=== PATIENT | male | born 1975 | race Two or more races ===

== ENCOUNTER 2022-10-08 07:50 | Emergency (ER) | payer OTHER ==
[~2022-10-08] VITALS: Ht 180.3 cm; Wt 88.9 kg
== END 2022-10-08 11:07 | disposition home or self-care (01) ==
LOC: ER 07:50
DX: S01.111A Laceration without foreign body of right eyelid and periocular area, initial encounter (principal); V19.9XXA Pedal cyclist (driver) (passenger) injured in unspecified traffic accident, initial encounter; Y93.B9 Activity, other involving muscle strengthening exercises; Y92.410 Unspecified street and highway as the place of occurrence of the external cause

== ENCOUNTER → 2022-10-16 | Emergency (ER) | payer OTHER ==
[~2022-10-16] VITALS: Ht 180.3 cm; Wt 90.7 kg
== END | disposition home or self-care (01) ==
LOC: ER 10:21
DX: Z48.02 Encounter for removal of sutures (principal)

== ENCOUNTER 2022-10-19 10:43 | Outpatient (CLI) | payer OTHER | END 2022-10-19 10:55 | disposition home or self-care (01) | LOC: TOM 10:43 | PROVIDERS: ATTEND General Practice | DX: R51.9 Headache, unspecified (principal); S09.90XA Unspecified injury of head, initial encounter ==

== ENCOUNTER 2025-05-21 12:38 | Emergency (ER) | payer OTHER ==
[~2025-05-21] VITALS: Ht 180.3 cm; Wt 95.3 kg
[2025-05-21] MEDS ORDERED: FAMOTIDINE/PF 20 MG/2 ML VIAL IV ONE (15:30)
[2025-05-21] MEDS ORDERED: 0.9 % SODIUM CHLORIDE 500 ML IV ONE (15:30)
[2025-05-21] MEDS ORDERED: KETOROLAC TROMETHAMINE 30 MG VIAL IV ONE ×2 (15:30→22:00)
[2025-05-21] MEDS ORDERED: ONDANSETRON HCL 2 MG/ML VIAL IV ONE (15:30)
[2025-05-21 16:19] LABS: BASO % 0.2 % (0.1-1.2); EOS # 0.00 (0.04-0.54); EOS % 0.0 % (0.7-7.0); LYMPH # 0.80 (1.18-3.74); LYMPH % 8.5 % (19.3-53.1); MEAN PLATELET VOLUME 11.10 fl (9.4-12.4); MONO # 0.47 (0.24-0.82); MONO % 5.0 % (4.7-12.5); NEUT # 8.04 (1.56-6.13); NEUT % 86.0 % (34.0-71.1); RED CELL DISTRIBUTION WIDTH 12.4 % (11.6-14.4)
[2025-05-21 18:19] LABS: ALT/SGPT 27.0 U/L (12-78); AST/SGOT 17.0 U/L (15-37); BILIRUBIN TOTAL 1.02 mg/dL (0.3-1.2); BUN CREA RATIO 13.0 (7.0-25.0); CREATININE SERUM 1.37 mg/dL (0.70-1.30); GFR 54.78; GLOBULINA 3.7 G/DL (2.4-3.5); GLUCOSE FASTING 106.0 mg/dL (65-100); OSMOLALITY SERUM 284.0 MOSM/KG (275-295)
[2025-05-21 21:00] LABS: URINE APPEARANCE Clear; URINE BILIRRUBIN Negative (NEGATIVE); URINE BLOOD Moderate; URINE COLOR Yellow; URINE GLUCOSE Negative (NEGATIVE); URINE LEUKOCYTE Negative; URINE NITRATE Negative; URINE PROTEIN 30 (NEGATIVE); URINE UROBILINOGEN 1.0 E.U./dl
[2025-05-21 21:01] LABS: URINE BACTERIA 28.7 uL (0.0-1933); URINE EPITHELIAL CELLS 15.2 uL (0.0-38.8); URINE RBC 51.9 uL (0.0-20.8); URINE WBC 33.9 uL (0.0-23.2)
[2025-05-21 21:18] LABS: URINE CAST 0.29 uL (0.0-1.40); URINE KETONE 40 (NEGATIVE)
[2025-05-21] MEDS ORDERED: DUI500 PO (21:39)
[2025-05-21] MEDS ORDERED: TAMS0.4C PO (21:39)
[2025-05-21] MEDS ORDERED: DICLOFENAC SODI50 MG PO (21:41)
[2025-05-21] MEDS ORDERED: TAMSULOSIN HCL 0.4 MG CAP PO ONE (21:45)
== END 2025-05-21 22:30 ==
LOC: ER 12:38
PROVIDERS: General Practice
DX: N20.1 Calculus of ureter (principal); R10.32 Left lower quadrant pain; R10.9 Unspecified abdominal pain
CPT/HCPCS: 36415; 74177; Q9965